=== PATIENT | male | born 1985 | race Native Hawaiian/Other Pacific Islander ===

== ENCOUNTER 2016-08-09 18:14 | Emergency (ER) | payer SELFPAY ==
[2016-08-09 19:11] LABS: Basophils % (Auto) 0.5 % (0.0-1.8); Eosinophils % (Auto) 1.1 % (0.0-4.3); Hematocrit 43.7 % (35.5-45.6); Hemoglobin 15.1 gm/dl (11.8-15.2); Mean Corpuscular HGB Conc 35 % (32-34); Mean Corpuscular Hemoglobin 31 pg (28-32); Mean Corpuscular Volume 90 fl (84-94); Platelet Count 167 K/mm3 (140-440); Red Blood Count 4.88 M/mm3 (3.65-5.03); Red Cell Distribution Width 12.7 % (13.2-15.2); White Blood Count 9.7 K/mm3 (4.5-11.0)
[2016-08-09 20:08] LABS: Anion Gap 19 mmol/L; BUN/Creatinine Ratio 28.57; Blood Urea Nitrogen 20 mg/dL (9-20); Calcium 8.6 mg/dL (8.4-10.2); Carbon Dioxide 21 mmol/L (22-30); Chloride 103.3 mmol/L (98-107); Glucose 113 mg/dL (75-100); Potassium 3.7 mmol/L (3.6-5.0); Sodium 140 mmol/L (137-145)
--- NOTE | 2016-08-10 01:10 | Emergency Department Report ---
HPI - General Chief Complaint: Chest Pain Time Seen by Provider: 08/10/16 00:55 - HPI HPI: Room 26 The patient is a 30-year-old male presenting with a chief complaint of rash, chest soreness and hiccups. The patient states his symptoms began 4 days ago after he was bitten by presumably an insect on his left foot. Patient states since then his develop intermittent rashes extremities and the back neck that are pruritic. He states that the rash does come and go. Following evening while he was sleeping to go substernal chest pain but also into waken this pain was intermittent for 3 hours. The patient states he went to see his primary physician the following day was diagnosed with esophageal spasm started on Nexium and meloxicam. The patient states yesterday after eating lunch she began developing hiccups for approximately 24 hours. Patient states his chest was tight from hiccups and became sore. Patient currently denies chest pain was states it only hurts when he hiccups. Location: see above Duration: 4 days Quality: Soreness Severity: Currently 0/10 Modifying factors: [see above] Context: [see above] Mode of transportation: Unknown ED Past Medical Hx - Past Medical History Previous Medical History?: Yes Hx GERD: Yes - Surgical History Past Surgical History?: No - Family History Family history: no significant - Social History Smoking Status: Current Every Day Smoker (1/7 per day) Substance Use Type: None (denies illicit drug use), Alcohol (occasional) - Medications Home Medications: Home Medications Medication Instructions Recorded Confirmed Last Taken Type Cephalexin [Keflex] 500 mg PO TID 08/09/16 08/09/16 08/09/16 History Esomeprazole Magnesium [NexIUM] 40 mg PO DAILY 08/09/16 08/09/16 Unknown History Meloxicam [Meloxicam] 15 mg PO Q8HR PRN 08/09/16 08/09/16 Unknown History Prednisone [predniSONE 10 mg 10 mg PO .TAPER #1 tab.ds.pk 08/10/16 Unknown Rx (6-Day Pack, 21 Tabs)] chlorproMAZINE [Thorazine] 10 mg PO Q8H PRN #10 tab 08/10/16 Unknown Rx traMADol [Ultram] 50 mg PO Q6HR PRN #10 tablet 08/10/16 Unknown Rx ED Review of Systems ROS: Stated complaint: CHEST PAIN Other details as noted in HPI Comment: All other systems reviewed and negative Constitutional: denies: chills, fever Eyes: denies: eye pain, eye discharge, vision change ENT: denies: ear pain, throat pain Respiratory: denies: cough, shortness of breath, wheezing Cardiovascular: chest pain. denies: palpitations Endocrine: no symptoms reported Gastrointestinal: other (hiccups). denies: nausea, vomiting Genitourinary: denies: urgency, dysuria Musculoskeletal: denies: back pain, joint swelling, arthralgia Skin: rash. denies: lesions Neurological: denies: headache, weakness, paresthesias Psychiatric: denies: anxiety, depression Hematological/Lymphatic: denies: easy bleeding, easy bruising Physical Exam - Physical Exam Vital Signs: Vital Signs 08/09/16 08/09/16 08/09/16 18:43 23:32 23:33 Temperature 98.7 F 98 F Pulse Rate 70 67 Respiratory 16 16 16 Rate Blood Pressure 120/81 Blood Pressure 115/66 [Left] O2 Sat by Pulse 100 99 99 Oximetry Physical Exam: GENERAL: The patient is well-developed well-nourished male lying on stretcher not appearing to be in acute distress. [] HEENT: Normocephalic. Atraumatic. Extraocular motions are intact. Patient has moist mucous membranes. NECK: Supple. Pale Erythematous rash to the nape of neck CHEST/LUNGS: Clear to auscultation. There is no respiratory distress noted. HEART/CARDIOVASCULAR: Regular. There is no tachycardia. There is no gallop rub or murmur. ABDOMEN: Abdomen is soft, nontender. Patient has normal bowel sounds. There is no abdominal distention. SKIN: There is a pale erythematous rash to the nape of the neck. Evidence of scratching present. Some pill erythema to the anterior aspect of proximal left thigh. There is no edema. There is no diaphoresis. NEURO: The patient is awake, alert, and oriented. The patient is cooperative. The patient has normal speech MUSCULOSKELETAL: There is no evidence of acute injury. ED Course Vital Signs 08/09/16 08/09/16 08/09/16 18:43 23:32 23:33 Temperature 98.7 F 98 F Pulse Rate 70 67 Respiratory 16 16 16 Rate Blood Pressure 120/81 Blood Pressure 115/66 [Left] O2 Sat by Pulse 100 99 99 Oximetry ED Medical Decision Making - Lab Data Result diagrams: 08/09/16 18:54 08/09/16 18:54 Laboratory Tests 08/09/16 08/09/16 08/10/16 18:54 18:54 01:14 WBC 9.7 RBC 4.88 Hgb 15.1 Hct 43.7 MCV 90 MCH 31 MCHC 35 H RDW 12.7 L Plt Count 167 Lymph % (Auto) 46.0 H Dixon % (Auto) 7.8 H Eos % (Auto) 1.1 Baso % (Auto) 0.5 Lymph # 4.4 Dixon # 0.8 Eos # 0.1 Baso # 0.0 Seg Neutrophils % 44.6 Seg Neutrophils # 4.3 D-Dimer < 135.00 Sodium 140 Potassium 3.7 Chloride 103.3 Carbon Dioxide 21 L Anion Gap 19 BUN 20 Creatinine 0.7 L Estimated GFR > 60 BUN/Creatinine Ratio 28.57 Glucose 113 H Calcium 8.6 Troponin T < 0.010 - EKG Data -: EKG Interpreted by Me EKG shows normal: sinus rhythm Rate: normal - EKG Data When compared to previous EKG there are: previous EKG unavailable Interpretation: nonspecific ST-T wave choco (T-wave inversion in lead 3) - Radiology Data Radiology results: image reviewed (chest x-ray) interpreted by me: Chest x-ray-no focal infiltrates, no pneumothorax - Differential Diagnosis GERD, esophageal spasm, ACS, PE Critical care attestation.: If time is entered above; I have spent that time in minutes in the direct care of this critically ill patient, excluding procedure time. ED Disposition Clinical Impression: Allergic reaction, Hiccups, Atypical chest pain Disposition: DISCHARGED TO HOME OR SELFCARE Is pt being admited?: No Does the pt Need Aspirin: No Condition: Stable Instructions: Chest Pain (ED) Prescriptions: chlorproMAZINE [Thorazine] 10 mg PO Q8H PRN #10 tab PRN Reason: Hiccups Prednisone [predniSONE 10 mg (6-Day Pack, 21 Tabs)] 10 mg PO .TAPER #1 tab.ds.pk traMADol [Ultram] 50 mg PO Q6HR PRN #10 tablet PRN Reason: Pain Referrals: PRIMARY CARE, [Primary Care Provider] - 3-5 Days PREMA ALEJANDRA MD [Staff Physician] - 3-5 Days (Dr. Alejandra is a big data solutions architect. Please follow up with him for further evaluation) LIZANDRO EUCEDA MD [Staff Physician] - 3-5 Days (Dr. Euceda is a corporate executive. Please follow up with him for further evaluation) Time of Disposition: 02:11
[2016-08-10 02:30] VITALS: BP 114/78
--- NOTE | 2016-08-10 09:44 | XRay Report ---
ROUTINE CHEST, TWO VIEWS: HISTORY: chest pain. The trachea, heart, mediastinal contour, lung ling and bony thorax are unremarkable. IMPRESSION: Unremarkable chest x-ray.
== END 2016-08-10 02:33 | disposition home or self-care (01) ==
LOC: ED 18:14
DX: T78.40XA Allergy, unspecified, initial encounter (principal); R07.89 Other chest pain; R06.6 Hiccough; Y92.9 Unspecified place or not applicable
CPT/HCPCS: 36415; 71020; 80048; 84484; 85025; 85379; 93005; 93010; 99284